=== PATIENT | male | born 1960 ===

== ENCOUNTER 2022-11-08 09:23 | Outpatient (CLI) | payer OTHER | END 2022-11-08 09:27 | disposition home or self-care (01) | LOC: RX STUDY 09:23 | DX: R13.19 Other dysphagia (principal) ==

== ENCOUNTER 2023-05-03 09:00 | Inpatient (IN) | payer OTHER ==
[~2023-05-03] VITALS: Ht 177.8 cm; Wt 53.1 kg
[2023-05-03 12:07] LABS: HEMATOCRIT 42.2 % (39.0-48.0); HEMOGLOBIN 14.1 g/dL (13-16.00); MEAN CELL VOLUME 101.4 fL (80.0-100.00); MEAN CORPUSCULAR HEMOGLOBIN 33.7 pg (27.00-32.0); MEAN CORPUSCULAR HGB CONC 33.3 g/dl (32.0-36.0); PLATELET COUNT 181 K/uL (150-450); RED BLOOD COUNT 4.17 M/uL (4.00-6.00); RED CELL DISTRIBUTION WIDTH 12.8 % (11.5-14.5)
[2023-05-03 12:23] LABS: PH,URINE 5.5 (5.0-8.0); URINE APPEARANCE Clear; URINE BILIRRUBIN Negative (NEGATIVE); URINE BLOOD Negative; URINE COLOR Dark Yellow; URINE GLUCOSE Negative (NEGATIVE); URINE LEUKOCYTE Trace; URINE NITRATE Negative; URINE PROTEIN Trace (NEGATIVE)
[2023-05-03 12:32] LABS: URINE BACTERIA 50.3 uL (0.0-1933); URINE EPITHELIAL CELLS 17.7 uL (0.0-38.8); URINE RBC 9.1 uL (0.0-20.8); URINE WBC 25.6 uL (0.0-23.2)
[2023-05-03 12:32] LABS: INR 1.03; PARTIAL THROMBOPLASTIN TIME 27.3 SECONDS (22.0-34.0); PROTHROMBIN TIME 10.8 SECONDS (9.0-11.5)
[2023-05-03 12:36] LABS: ALBUMIN 3.9 gm/dL (3.4-5.0); BILIRUBIN TOTAL 0.65 mg/dL (0.3-1.2); CALCIUM 9.7 mg/dL (8.5-10.1); CREATININE SERUM 0.91 mg/dL (0.70-1.30); GFR 83.61; GLOBULINA 4.4 G/DL (2.4-3.5); POTASSIUM 4.91 mEq/L (3.5-5.1); TOTAL PROTEIN 8.3 gm/dL (6.4-8.2)
[2023-05-03] MEDS ORDERED: COZAAR100 MG PO (12:53)
[2023-05-03] MEDS ORDERED: [UNRECOGNIZED DRUG - OTHER] PO (12:53)
[2023-05-17] MEDS ORDERED: SYMTUZA 800-151 EACH (08:11)
[2023-05-17] MEDS ORDERED: CEFAZOLIN SODIUM 1,000 MG VIAL ONE ×2 (10:33→16:06)
[2023-05-17] MEDS ORDERED: TRANEXAMIC ACID 100MG/1ML (1000MG) AMPUL IV ONE (10:33)
[2023-05-17] MEDS ORDERED: LIDOCAINE HCL 1%/Epi 20ML VIAL IJ ONE ×2 (10:33→11:45)
[2023-05-17] MEDS ORDERED: BUPIVACAINE HCL/PF 0.5% 30ML ML ONE (10:33)
[2023-05-17] MEDS ORDERED: KETOROLAC TROMETHAMINE 60 MG VIAL IM ONE ×2 (10:38→11:45)
[2023-05-17] MEDS ORDERED: METHYLPREDNISOLONE ACETATE 80 MG/ML VIAL ONE (10:54)
[2023-05-17] MEDS ORDERED: VANCOMYCIN HCL 1,000 MG VIAL ONE (10:54)
[2023-05-17] MEDS ORDERED: CEFAZOLIN SODIUM 2,000 MG in 0.9 % SODIUM CHLORIDE 100 ML IV ONE (11:45)
[2023-05-17] MEDS ORDERED: METHYLPREDNISOLONE ACETATE 80 MG/ML VIAL IU ONE (11:45)
[2023-05-17] MEDS ORDERED: VANCOMYCIN HCL 1,000 MG in 0.9 % SODIUM CHLORIDE 250 ML IR ONE (11:45)
[2023-05-17] MEDS ORDERED: MORPHINE SULFATE 4 MG/ML VIAL IV ONE (11:45)
[2023-05-17] MEDS ORDERED: TRANEXAMIC ACID 1,000 MG in 0.9 % SODIUM CHLORIDE 100 ML IV ONE (11:45)
[2023-05-17] MEDS ORDERED: BUPIVACAINE HCL/PF 0.5% 30ML ML IU ONE (11:45)
[2023-05-17] MEDS ORDERED: OxyCODONE HCL 5 MG TABLET (ROXICODONE) PO PRN (12:30)
[2023-05-17] MEDS ORDERED: ONDANSETRON HCL 2 MG/ML VIAL IV PRN (12:30)
[2023-05-17] MEDS ORDERED: SODIUM CHLORIDE 0.45 % 1,000 ML IV SCH (12:30)
[2023-05-17] MEDS ORDERED: MORPHINE SULFATE 4 MG/ML CARTRIDGE IV PRN (12:30)
[2023-05-17] MEDS ORDERED: CEFAZOLIN SODIUM 1,000 MG VIAL IV SCH (17:00)
[2023-05-17] MEDS ORDERED: GABAPENTIN 300 MG CAPSULE PO SCH (17:00)
[2023-05-17] MEDS ORDERED: ACETAMINOPHEN 500 MG GEL..CAP PO ONE (17:41)
[2023-05-17] MEDS ORDERED: GABAPENTIN 300 MG CAPSULE PO ONE (17:41)
[2023-05-17] MEDS ORDERED: ACETAMINOPHEN 500 MG GEL..CAP PO SCH (18:00)
[2023-05-18 06:24] LABS: HEMATOCRIT 33.6 % (39.0-48.0); HEMOGLOBIN 11.3 g/dL (13-16.00); MEAN CELL VOLUME 99.1 fL (80.0-100.00); MEAN CORPUSCULAR HEMOGLOBIN 33.3 pg (27.00-32.0); MEAN CORPUSCULAR HGB CONC 33.6 g/dl (32.0-36.0); RED BLOOD COUNT 3.39 M/uL (4.00-6.00); RED CELL DISTRIBUTION WIDTH 12.8 % (11.5-14.5)
[2023-05-18 06:43] LABS: PLATELET COUNT 124 K/uL (150-450)
[2023-05-18] MEDS ORDERED: APIXABAN 2.5 MG TABLET PO SCH (09:00)
[2023-05-18] MEDS ORDERED: SENNOSIDES 1 TAB TABLET PO SCH (09:00)
[2023-05-18] MEDS ORDERED: PERCOCET 5-3251 EACH PO (09:10)
[2023-05-18] MEDS ORDERED: DUI500 PO (09:10)
[2023-05-18] MEDS ORDERED: ELIQUIS2.5 MG PO (09:10)
[2023-05-18] MEDS ORDERED: PATIENTS OWN MEDICATION (MEDICAMENTO EN PISO) PO ONE (13:00)
[2023-05-18] MEDS ORDERED: PATIENTS OWN MEDICATION (MEDICAMENTO EN PISO) PO SCH (14:00)
[2023-05-18] MEDS ORDERED: VITAMIN B COMPLEX 1 EACH PO SCH (14:52)
[2023-05-18] MEDS ORDERED: SOD FERRIC GLUC COMPLX/SUCROSE 62.5 MG/5 ML AMPUL IV SCH (14:53)
[2023-05-18] MEDS ORDERED: Cyanocobalamin/Mecobalamin 1 TAB.SL SL SCH (14:53)
[2023-05-18] MEDS ORDERED: LOSARTAN POTASSIUM 100 MG TABLET PO STA (16:09)
[2023-05-18] MEDS ORDERED: LOSARTAN POTASSIUM 100 MG TABLET PO SCH (16:10)
[2023-05-18] MEDS ORDERED: AMLODIPINE BESYLATE 5 MG TABLET PO STA (19:12)
[2023-05-18] MEDS ORDERED: hydrALAZINE HCL 20 MG VIAL IV STA (19:13)
[2023-05-18] MEDS ORDERED: hydrALAZINE HCL 20 MG VIAL IV PRN (19:15)
[2023-05-19 06:31] LABS: HEMATOCRIT 37.6 % (39.0-48.0); HEMOGLOBIN 12.6 g/dL (13-16.00); MEAN CELL VOLUME 99.4 fL (80.0-100.00); MEAN CORPUSCULAR HEMOGLOBIN 33.2 pg (27.00-32.0); MEAN CORPUSCULAR HGB CONC 33.4 g/dl (32.0-36.0); PLATELET COUNT 140 K/uL (150-450); RED BLOOD COUNT 3.78 M/uL (4.00-6.00); RED CELL DISTRIBUTION WIDTH 12.8 % (11.5-14.5)
[2023-05-19] MEDS ORDERED: IRON FUM,PS/FOLIC ACID/VITC/B3 1 CAP CAPSULE PO SCH (09:00)
[2023-05-19] MEDS ORDERED: MORPHINE SULFATE 4 MG/ML CARTRIDGE IV PRN (15:00)
[2023-05-19] MEDS ORDERED: hydrALAZINE HCL 20 MG VIAL IV STA (15:19)
[2023-05-19] MEDS ORDERED: hydrALAZINE HCL 20 MG VIAL IV PRN (15:30)
[2023-05-19] MEDS ORDERED: ENALAPRILAT DIHYDRATE 2.5 MG/2 ML VIAL IV ONE ×2 (16:45)
== END 2023-05-19 17:24 | DRG 470 ==
LOC: O/R 05-17 06:09 → SURH 05-17 09:00 → PED 05-17 15:11 → SURH 05-18 18:05
PROVIDERS: ADMIT Orthopaedic Surgery; ATTEND Orthopaedic Surgery
PROC: 0SRC0J9 Replacement of Right Knee Joint with Synthetic Substitute, Cemented, Open Approach (ICD-10-PCS; principal; 2023-05-17 14:30)
DX: M17.11 Unilateral primary osteoarthritis, right knee (principal); D62 Acute posthemorrhagic anemia; B20 Human immunodeficiency virus [HIV] disease; M22.11 Recurrent subluxation of patella, right knee; I10 Essential (primary) hypertension